=== PATIENT | female | born 1965 | race Caucasian/White ===

== ENCOUNTER → 2017-10-22 | Outpatient (CLI) | payer OTHER ==
[~2017-10-22] MED LIST: CALCTAB5 PO; MULTTAB58 PO; ONDA4TAB7 SL
== END | disposition home or self-care (01) ==
LOC: C.PAPS 14:51
PROVIDERS: ATTEND Obstetrics & Gynecology
DX: Z12.4 Encounter for screening for malignant neoplasm of cervix (principal)